=== PATIENT | female | born 1990 | race American Indian/Alaskan Native ===

== ENCOUNTER 2020-01-05 04:07 | Emergency (ER) | payer SELFPAY ==
[2020-01-05] MEDS ORDERED: levETIRAcetam 1000 MG/NS 0.75% 1,000 MG/100 ML BAG IV ONE (04:14)
--- NOTE | 2020-01-05 04:17 | Event Note ---
Date: 01/05/20 Medical screening note: EMS documentation not available at time of chart dictation 29-year-old female brought to the hospital by emergency medical services with a complaint of nontraumatic convulsive activity. EMS verbally states patient was found in bed by family, perhaps having convulsions. EMS gave 5 mg medazepam intramuscular. In the field, patient afebrile, with reassuring vital signs, with a normal Accu-Chek. EMS further states that the patient is sleeping comfortably in the stretcher/ambulance, and then when stimulated, such as with sternal rub, she develops jerking motions. In the emergency room, the patient is afebrile, protecting her airway, has recurrent jerking motions when stimulated with sternal rub. Otherwise, she is sleeping comfortably on her stretcher. Plan is to check appropriate laboratory studies, EKG, urinalysis, noncontrast CT scan of the head, and x-ray of the chest. Uncertain if true seizure versus psychogenic event. There is no endorsement of homicidality or suicidality from collateral information obtained from family, or from EMS. Apparently, patient's father did indicate to our registration staff that the patient has a history of seizures, but does not take antiepileptic drugs.
[2020-01-05 04:52] LABS: Hematocrit 33.6 % (30.3-42.9)
--- NOTE | 2020-01-05 04:55 | Cat Scan Report ---
CT head/brain wo con INDICATION: convulsions. TECHNIQUE: All CT scans at this location are performed using CT dose reduction for ALARA by means of automated e xposure control. COMPARISON: 02/17/2015 FINDINGS: Visualized paranasal and mastoid sinuses are clear. Ventricles are symmetrical and normal in size. No mass, hemorrhage or other abnormality. IMPRESSION: 1. Negative study. Signer Name: Sulaiman Polo MD Signed: 01/05/2020 4:50 AM Workstation Name: [employer]
[2020-01-05 05:03] LABS: INR 1.04 (0.87-1.13)
[2020-01-05 05:11] LABS: Alanine Aminotransferase 8 units/L (7-56); Albumin 3.5 g/dL (3.9-5); BUN/Creatinine Ratio 13; Blood Urea Nitrogen 9 mg/dL (7-17); Calcium 8.4 mg/dL (8.4-10.2); Hemolysis Index 1
[2020-01-05 05:36] LABS: Bacteria,Urine 1+ /HPF (Negative); Bilirubin,Urine NEG (Negative); Blood,Urine LG (Negative); Color,Urine Yellow (Yellow); Mucus,Urine FEW /HPF
[2020-01-05] MEDS ORDERED: SODIUM CHLORIDE 0.9% 1000 ML 1,000 ML ONE (05:46)
[2020-01-05 05:54] LABS: Cocaine Screen,Urine PRESUMPTIVE NEGATIVE; Methadone Screen,Urine PRESUMPTIVE NEGATIVE; Opiate Screen,Urine PRESUMPTIVE NEGATIVE
[2020-01-05] MEDS ORDERED: POTASSIUM CHLORIDE 10 MEQ 10 MEQ/100 ML BAG IV SCH (06:00)
[2020-01-05] MEDS ORDERED: SODIUM CHLORIDE 0.9% 1000 ML 1,000 ML IV ONE (06:00)
--- NOTE | 2020-01-05 06:01 | XRay Report ---
CHEST 1 VIEW INDICATION: sz convulsion ams COMPARISON: None FINDINGS: Support devices: None Heart: Normal Lungs/Pleura: No acute pulmonary or pleural findings. IMPRESSION: 1. No acute disease. Signer Name: Sulaiman Polo MD Signed: 01/05/2020 5:57 AM Workstation Name: [id number]
[2020-01-05 06:11] LABS: Amphetamine Screen,Urine PRESUMPTIVE POSITIVE; Benzodiazepines Screen,Urine PRESUMPTIVE POSITIVE; Cannabinoid Screen,Urine PRESUMPTIVE POSITIVE
--- NOTE | 2020-01-05 06:11 | Emergency Department Report ---
ED Seizure HPI - General Chief Complaint: Seizure Stated Complaint: SEIZURE Time Seen by Provider: 01/05/20 06:06 Source: EMS Mode of arrival: Stretcher Limitations: Altered Mental Status (Patient is currently nonverbal), Physical Limitation - History of Present Illness Initial Comments: This is a 29-year-old female with history of seizure disorder who presents from home via EMS for seizure. Family called 911. Patient received Versed and naloxone prior to arrival. Patient currently is nonverbal MD Complaint: seizure -: This morning Description of Episode: loss of consciousness, tonic-clonic movement Witnessed:: Yes Trauma: No Seizure History: known seizure disorder Place: home Treatments Prior to Arrival: benzodiazepines, other (Naloxone) - Related Data Previous Rx's Medication Instructions Recorded Last Taken Type levETIRAcetam [Keppra TAB] 500 mg PO BID 30 Days #60 tablet 01/05/20 Unknown Rx Allergies Allergy/AdvReac Type Severity Reaction Status Date / Time No Known Allergies Allergy Verified 02/19/15 19:29 ED Review of Systems ROS: Stated complaint: SEIZURE Other details as noted in HPI Comment: All other systems reviewed and negative Constitutional: denies: fever, malaise Respiratory: denies: cough Cardiovascular: denies: chest pain ED Past Medical Hx - Past Medical History Previous Medical History?: Yes Hx Congestive Heart Failure: No Hx Diabetes: No Hx Seizures: Yes (seizure hx) Hx Asthma: No Hx COPD: No Additional medical history: seizures - Surgical History Past Surgical History?: Yes Additional Surgical History: x2 - Social History Smoking Status: Current Every Day Smoker Substance Use Type: None - Medications Home Medications: Home Medications Medication Instructions Recorded Confirmed Last Taken Type levETIRAcetam [Keppra TAB] 500 mg PO BID 30 Days #60 tablet 01/05/20 Unknown Rx ED Physical Exam - General Limitations: Physical Limitation General appearance: other (Eyes closed, random jerking, purposeful movement, will not answer questions, does localize pain) - Head Head exam: Present: atraumatic, normocephalic - Eye Eye exam: Present: normal appearance - ENT ENT exam: Present: mucous membranes moist - Neck Neck exam: Present: normal inspection, full ROM - Respiratory Respiratory exam: Present: normal lung sounds bilaterally. Absent: respiratory distress, wheezes, rales, rhonchi - Cardiovascular Cardiovascular Exam: Present: regular rate, normal rhythm, normal heart sounds. Absent: systolic murmur, diastolic murmur, rubs, gallop - GI/Abdominal GI/Abdominal exam: Present: soft, normal bowel sounds. Absent: distended, tenderness, guarding, rebound - Extremities Exam Extremities exam: Present: normal inspection - Neurological Exam Neurological exam: Present: altered - Skin Skin exam: Present: warm, dry, intact, normal color. Absent: rash ED Course Vital Signs 01/05/20 01/05/20 01/05/20 04:24 05:00 06:00 Temperature 98.3 F Pulse Rate 67 68 58 L Respiratory 16 12 16 Rate Blood Pressure 119/81 119/81 Blood Pressure 116/85 [Left] O2 Sat by Pulse 100 98 100 Oximetry 01/05/20 01/05/20 01/05/20 07:00 07:25 10:48 Temperature Pulse Rate 71 86 84 Respiratory 16 14 16 Rate Blood Pressure 113/71 Blood Pressure 103/72 127/88 [Left] O2 Sat by Pulse 95 96 100 Oximetry ED Medical Decision Making - Lab Data Result diagrams: 01/05/20 04:22 01/05/20 04:22 - Medical Decision Making 1. Breakthrough seizure, and known history of seizures. Patient received IV K eppra load. She also received Versed and naloxone prior to arrival per EMS. After 8 hours observation in the emergency department, patient now awake and alert. She is asking to be discharged home. She states that she does not take antiepileptic medication because these agents make her sleepy. I have prescribed Keppra 500 mg. I referred her to neurologist. She understands that she is not allowed to drive until she is cleared by neurologist. 2. Urine drug screen positive for marijuana amphetamines and benzodiazepine. 3. Hypokalemia seen on review of labs. Patient prescribed p.o. supplementation Upon lab review: Urinalysis contaminated sample, positive drug screen otherwise labs were unremarkable CBC chemistry within normal limits with exception of hypokalemia hCG negative Critical care attestation.: If time is entered above; I have spent that time in minutes in the direct care of this critically ill patient, excluding procedure time. ED Disposition Clinical Impression: Breakthrough seizure, Seizures, Non compliance w medication regimen, Epilepsy, generalized, convulsive Disposition: DC-01 TO HOME OR SELFCARE Is pt being admited?: No Does the pt Need Aspirin: No Condition: Stable Instructions: Epilepsy (ED) Prescriptions: levETIRAcetam [Keppra TAB] 500 mg PO BID 30 Days #60 tablet Referrals: MARISELA HENDRICKS MD [Staff Physician] - 3-5 Days
[2020-01-05 10:48] VITALS: BP 127/88
== END 2020-01-05 12:40 | disposition home or self-care (01) ==
LOC: ED 04:07
DX: G40.909 Epilepsy, unspecified, not intractable, without status epilepticus (principal); F17.200 Nicotine dependence, unspecified, uncomplicated; Z91.14 Patient's other noncompliance with medication regimen; Z79.899 Other long term (current) drug therapy; Z98.890 Other specified postprocedural states
CPT/HCPCS: 36415; 70450; 71045; 80053; 80307; 81001; 82962; 83735; 84702; 85014; 85018; 85049; 85610; 93005; 96365; 99285; J1953; J3480; J7030; 80320; G0480